=== PATIENT | male | born 1980 | race Hispanic/Latino ===

== ENCOUNTER 2017-09-30 10:43 | Emergency (ER) | payer OTHER ==
[~2017-09-30] VITALS: Ht 175.3 cm; Wt 74.8 kg
[2017-09-30] MEDS ORDERED: GABAPENTIN600 M1 PO (11:43)
[2017-09-30 11:49] LABS: ABSOLUTE BASOPHIL COUNT 0 /CUMM (0.0-0.2); ABSOLUTE EOSINOPHIL COUNT 0.1 /CUMM (0.0-0.7); ABSOLUTE GRANULOCYTE CT 4.6 /CUMM (1.4-6.5); ABSOLUTE MONOCYTE COUNT 0.5 /CUMM (0.10-0.60); BASOPHIL % 0.2 % (0.0-2.0); EOSINOPHIL % 1.1 % (0-5); GRANULOCYTE % 74.8 % (42.2-75.2); HEMATOCRIT 38.3 % (42-52); MEAN CORPUSCULAR HGB 29.7 PG (27.0-31.0); MEAN CORPUSCULAR VOLUME 87.2 FL (80.0-94.0); MEAN PLATELET VOLUME 7.9 FL (7.4-10.4); PLATELET COUNT 233 /CUMM (130-400); RBC DISTRIBUTION WIDTH 15.3 % (11.5-14.5); RED BLOOD CELL CT 4.39 /CUMM (4.70-6.10); WHITE BLOOD CELL COUNT 6.2 /CUMM (4.8-10.8)
--- NOTE | 2017-09-30 11:53 | ED PSYCHIATRIC COMPLAINT ---
History of Present Illness General Chief Complaint: Psychiatric Related Complaint Stated Complaint: REQUESTS TO BE SEEN BY CRISIS +HI Source: patient, family Exam Limitations: no limitations Vital Signs & Intake/Output Vital Signs & Intake/Output Vital Signs Date Time Temp Pulse Resp B/P B/P Pulse O2 O2 Flow FiO2 Mean Ox Delivery Rate 09/30 1713 97.4 82 20 140/81 96 Room Air 09/30 1341 97.9 66 18 122/74 97 Room Air 09/30 1053 98.4 93 20 111/76 97 Room Air Allergies Coded Allergies: No Known Allergies (09/30/17) Reconcile Medications Gabapentin 600 MG TABLET 1 TAB PO QPM MENTAL HEALTH (Reported) Triage Note: PT STATES HE HAS BEEN HAVING MENTAL ISSUES FOR SOME TIME AND WOULD LIKE TO GET IT UNDER CONTROL. STATES +HI/SI TODAY. STATES HE COULD BE A BAD DELANEY AT TIMES WHEN HE LOSES CONTROL. PT COMMITS TO SAFETY WHILE IN ED Triage Nurses Notes Reviewed? yes Onset: Gradual Duration: week(s): Associated Symptoms: anxiety, impaired concentration, injury, insomnia, suicidal ideation HPI: 37yoM w/ hx of bipolar here w/ complaints of SI/HI. Patient was dx at 14yo w/ bipolar disorder. He was well controlled on Depakote, but was lost to follow up at 16yo when he had a ' fall out ' w/ his behavioral health counsellor. Since then, he has self medicated with Cannabis and street Xanax. Getting and having children have been a positive facote in his life. He has had episodes of outbursts but has always explained it as his temper. His father passed at 28yo and since then has spiralled down with cyclic episodes of geovany (hyper vigilance, pressured speech, grandiosity, hypersexuality) and depression ('crashing', hopelessness, sleeping for days, SI/ HI). Through all this, he has also had trouble with the court, law enforcement, /family ending in being arrested and jailed. Currently, he is endorsing audible hallucination, SI/HI but no particular plans. He also denies any visual hallucination. He smokes cigs daily and endorses occasional use of EtOH and cannabis. He denies any heroid, cocaine or meth use. He is in the ER purposely to avert any manic episodes. He is asking for help. (Opare-Cecily STUDENT,Antonio) Past History Travel History Traveled to [place] past 21 day No Medical History Type of Reaction: Anxiety Any Pertinent Medical History? see below for history Neurological: NONE EENT: NONE Cardiovascular: NONE Respiratory: NONE Musculoskeletal: L shoulder fx Psychiatric: anxiety, bipolar disease, depression Surgical History Surgical History: non-contributory Psychosocial History What is your primary language [place]ese Tobacco Use: Current Daily Use Daily Tobacco Use Amount/Type: => 5 Cigarettes daily ETOH Use: occasional use Illicit Drug Use: marijuana (Antonio Bojorquez) Family History Hx Contributory? No (Ken Larkin MD) Review of Systems Review of Systems Constitutional: Reports: see HPI. Denies: no symptoms, chills, diaphoresis, fever, malaise, weakness, unexplained weight loss. EENTM: Reports: no symptoms. Respiratory: Reports: no symptoms. Cardiovascular: Reports: no symptoms. GI: Reports: no symptoms. Musculoskeletal: Reports: no symptoms. Neurological/Psychological: Reports: see HPI, anxiety, cognitive dysfunction, confusion, depressed, emotional problems. (Antonio Bojorquez) Review of Systems Genitourinary: Reports: no symptoms. Skin: Reports: no symptoms. Hematologic/Endocrine: Reports: no symptoms. Immunologic/Allergic: Reports: no symptoms. All Other Systems: Reviewed and Negative (Ken Larkin MD) Physical Exam Physical Exam General Appearance: well developed/nourished, no apparent distress, alert, awake Neurological/Psychiatric: no motor/sensory deficits, awake, alert, anxious, oriented x 3 SAD PERSONS SAD PERSONS Response Value Male Sex? yes 1 Depression/Hopelessness? yes 2 Previous Attempts/Psych Care yes 1 Excessive Ethanol/Drug Use? yes 1 Single//? yes 1 Organized/Serious Attempt yes 2 Total 8 SAD PERSONS Done? yes (Antonio Bojorquez) Physical Exam General Appearance: anxious, mild distress Head: atraumatic, normal appearance Eyes: Bilateral: normal appearance, PERRL, EOMI. Ears, Nose, Throat: normal pharynx, normal ENT inspection, hearing grossly normal Neck: normal inspection, supple, full range of motion, no midline tenderness Respiratory: normal breath sounds, chest non-tender, no respiratory distress, quiet respiration, lungs clear Cardiovascular: regular rate/rhythm, normal peripheral pulses, norml femoral pulses equa Gastrointestinal: normal bowel sounds, soft, non-tender, no organomegaly Extremities: normal range of motion, no ligament instability Appearance/Memory/Insight: disheveled, impaired insight Behavoir/Eye Contact/Speech: cooperative, compulsive, normal speech Thoughts/Hallucinations: no apparent hallucination Skin: intact, normal color, warm/dry (Chaya MCFARLAND,Ken) Progress Differential Diagnosis: drug intoxication, drug overdose, drug withdrawal, electrolyte abnormality, hypothyroidism, bipolar, schizoaffective disorder Plan of Care: Orders Procedure Date/time Status Continuous Observation Monitor 09/30 1845 Active Continuous Observation Monitor 09/30 1445 Active ED CRISIS PSYCH CONSULT 09/30 1248 Active TOTAL TRIODOTHYROXINE 09/30 1135 Complete FREE T4 09/30 1135 Complete URINE DRUG SCREEN FOR ER ONLY 09/30 1126 Complete TSH REFLEX 09/30 1126 Complete ETHANOL 09/30 1126 Complete DEPAKOTE LEVEL 09/30 112 Complete COMPREHENSIVE METABOLIC PANEL 09/30 112 Complete CBC WITHOUT DIFFERENTIAL 09/30 112 Complete Continuous Observation Monitor 09/30 1045 Active Laboratory Tests 09/30/17 1144: Urine Opiates Screen 814.00, Methadone Screen < 40, Barbiturate Screen < 60, Ur Phencyclidine Scrn < 6.00, Amphetamines Screen < 100, U Benzodiazepines Scrn < 85, Urine Cocaine Screen < 50, Urine Cannabis Screen > 80.00 H 09/30/17 1135: Anion Gap 10, Estimated GFR > 60, BUN/Creatinine Ratio 23.3, Glucose 94, Calcium 9.5, Total Bilirubin 0.5, AST 17, ALT 37, Alkaline Phosphatase 56, Total Protein 6.6, Albumin 3.9, Globulin 2.7, Albumin/Globulin Ratio 1.4, Free T4 1.17, Total T3 1.51, TSH &T3 &Free T4 Intrp 0.038 L, CBC w Diff NO MAN DIFF REQ, RBC 4.39 L, MCV 87.2, MCH 29.7, MCHC 34.0, RDW 15.3 H, MPV 7.9, Gran % 74.8, Lymphocytes % 16.5 L, Monocytes % 7.4, Eosinophils % 1.1, Basophils % 0.2, Absolute Granulocytes 4.6, Absolute Lymphocytes 1.0 L, Absolute Monocytes 0.5, Absolute Eosinophils 0.1, Absolute Basophils 0, Valproic Acid < 10.0 L, Serum Alcohol < 10.0 11:26AM Endorsing SI/HI. He is A&Ox4 and mildly tangential but responds well to redirection. SAD PERSONS Score of 8 dDx includes drug intoxication, toxic withdrawal, hypothyroidism, electrolyte problem, bipolar and schizoaffecitve disorder. Patient will be evaluated with the regular psych bundle including Utox, TSH, CBC, CMP and EtOH level. He will also get a Depakote level. If no acute medical issues, his care will be transferred to the Crisis team. 1:10 Patient was getting agitated and was evaluated by Dr. Larkin who ordered Ativan. Utox grossly for opiates. Patient awaiting to be seen by crisis team 3:30PM Care of patient to be completed taken over by Dr. Larkin. (Antonio Bojorquez) Departure Departure Condition: Stable Referrals: Patient Has No Primary Care Dr (PCP/Family) (Antonio Bojorquez) Departure Time of Disposition: 1653 Disposition: HOME OR SELF CARE Clinical Impression Primary Impression: Bipolar 1 disorder with moderate geovany Additional Instructions: Follow up with the recommendations of the psychiatric assistant. Departure Forms: General Discharge Information (Ken Larkin MD)
[2017-09-30 17:13] VITALS: BP 140/81
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
== END 2017-09-30 17:15 ==
LOC: ERH 10:43
PROVIDERS: Emergency Medicine
DX: F31.12 Bipolar disorder, current episode manic without psychotic features, moderate (principal)
CPT/HCPCS: 80307; G0463; G0480; J1200; J1630

== ENCOUNTER 2017-10-01 21:47 | Inpatient (IN) | payer OTHER ==
[~2017-10-01] VITALS: Ht 167.6 cm; Wt 68.1 kg
[~2017-10-01 21:47] MED LIST: GABAPENTIN600 M1 PO
[2017-10-01 22:29] LABS: ABSOLUTE BASOPHIL COUNT 0.1 /CUMM (0.0-0.2); ABSOLUTE EOSINOPHIL COUNT 0.1 /CUMM (0.0-0.7); ABSOLUTE GRANULOCYTE CT 6.4 /CUMM (1.4-6.5); ABSOLUTE LYMPH COUNT 2.1 /CUMM (1.2-3.4); BASOPHIL % 0.9 % (0.0-2.0); EOSINOPHIL % 1.2 % (0-5); GRANULOCYTE % 65.9 % (42.2-75.2); HEMATOCRIT 39.9 % (42-52); MEAN CORPUSCULAR HGB CONC 32.8 G/DL (33.0-37.0); MEAN CORPUSCULAR VOLUME 88.3 FL (80.0-94.0); MEAN PLATELET VOLUME 7.4 FL (7.4-10.4); PLATELET COUNT 293 /CUMM (130-400); RBC DISTRIBUTION WIDTH 15.5 % (11.5-14.5); RED BLOOD CELL CT 4.51 /CUMM (4.70-6.10)
[2017-10-01 22:33] LABS: WHITE BLOOD CELL COUNT 9.7 /CUMM (4.8-10.8)
--- NOTE | 2017-10-01 22:52 | ED PSYCHIATRIC COMPLAINT ---
See Addendum History of Present Illness General Chief Complaint: Psychiatric Related Complaint Stated Complaint: PER BROTHER LAW PT +SI Source: patient Exam Limitations: no limitations Vital Signs & Intake/Output Vital Signs & Intake/Output Vital Signs Date Time Temp Pulse Resp B/P B/P Pulse O2 O2 Flow FiO2 Mean Ox Delivery Rate 10/03 0753 97.5 77 126/77 10/02 2226 98.8 78 122/80 10/02 2220 98.8 78 122/80 10/02 2143 98.1 74 18 118/70 99 Room Air 10/02 1400 98.0 78 17 115/72 97 Room Air 10/02 1024 98.3 77 18 128/84 98 Room Air ED Intake and Output 10/03 0000 10/02 1200 Intake Total 250 Output Total Balance 250 Intake, Oral 250 Patient 150 lb Weight Allergies Coded Allergies: No Known Allergies (09/30/17) Triage Note: PT PRESENTS TO THE ER +SI, AND +HI. PT STATES HE WAS HERE YESTERDAY AND THAT HE WAS IN CONTROL MORE BUT TODAY HE FEELS OUT OF CONTROL.. PT STATES HE IS EXTREMELY ANXIOUS.. PT IS VERY JITTERY IN TRIAGE.. PT DENIES PLAN, PT STATES THAT HE IS EXTREMLY ANXIOUS AROUND PEOPLE AND GETS UNCONTROLLABLE RAGE AND WANTS TO HURT WHO EVER IS AROUND.. Triage Nurses Notes Reviewed? yes HPI: Patient presents for evaluation of worsening anxiety over the past few days secondary to increasing family stress and "a lot of things". Patient states that he has had intermittent thoughts of suicide without plan. He denies any prior attempts at suicide. He denies homicidal ideation. He states he drinks alcohol rarely but does smoke marijuana fairly frequently and uses Xanax off the street. Patient's anxiety is severe and more or less constant but fluctuates in intensity. Nothing seems to make him feel better. (Christal MCFARLAND,Dwayne Chao) Reconcile Medications Gabapentin 600 MG TABLET 1 TAB PO QPM MENTAL HEALTH (Reported) Oxycodone HCl (Unknown Strength) TABLET (Unknown Dose) PO PAIN CONTROL ( Reported) (Rio MCFARLAND,Olivia) Past History Travel History Traveled to [place] past 21 day No Medical History Any Pertinent Medical History? see below for history Neurological: NONE EENT: NONE Cardiovascular: NONE Respiratory: NONE Musculoskeletal: L shoulder fx Psychiatric: anxiety, bipolar disease, depression Surgical History Surgical History: non-contributory Psychosocial History Who do you live with Mother What is your primary language [place] Tobacco Use: Current Daily Use Daily Tobacco Use Amount/Type: => 5 Cigarettes daily Family History Hx Contributory? No (Christal MCFARLAND,Dwayne Chao) Review of Systems Review of Systems Constitutional: Reports: no symptoms. EENTM: Reports: no symptoms. Respiratory: Reports: no symptoms. Cardiovascular: Reports: no symptoms. GI: Reports: no symptoms. Genitourinary: Reports: no symptoms. Musculoskeletal: Reports: no symptoms. Skin: Reports: no symptoms. Neurological/Psychological: Reports: see HPI. Hematologic/Endocrine: Reports: no symptoms. Immunologic/Allergic: Reports: no symptoms. All Other Systems: Reviewed and Negative (Christal MCFARLAND,Dwayne Chao) Physical Exam Physical Exam General Appearance: see below Neurological/Psychiatric: see below Comments: General: Alert, calm, cooperative Head: Normocephalic, atraumatic Eyes: Normal inspection, no nystagmus, EOMI Ears: Normal inspection Nose: Normal inspection Throat: Moist mucosa Neck: Supple, no goiter Heart: Regular rate and rhythm, no murmurs rubs or gallops Lungs: Clear to auscultation bilaterally with good air entry Abdomen: Soft nontender nondistended, normal bowel sounds Chest: Nontender Extremities: Normal range of motion grossly, mild tremors present, no cyanosis clubbing or edema of the upper extremities Neurologic: cranial nerves II through XII grossly intact, speech clear, gait normal Psychiatric: No apparent delusions or hallucinations, no pressured speech or thought blocking, subdued demeanor Skin: Vitiligo of the hands SAD PERSONS Done? deferred to crisis (Christal MCFARLAND,Dwayne Chao) Progress Differential Diagnosis: depression, anxiety, stress, personality disorder Plan of Care: Orders Procedure Date/time Status Regular Diet 10/03 B Active Continuous Observation Monitor 10/03 0700 Active THYROID STIMULATING HORMONE 10/03 0600 Complete LIPID PANEL 10/03 0600 Complete GLYCOSYLATED HGB 10/03 0600 Complete Continuous Observation Monitor 10/03 0300 Active Continuous Observation Monitor 10/02 2300 Complete Vital Signs 10/02 2228 Active Inpt Psych Teach/Educate 10/02 2228 Active Nutritional Intake, Monitor 10/02 2228 Active Inpt Psych Auricular Acupunctu 10/02 2228 Active Vital Signs 10/02 2216 Complete Inpt Psych Teach/Educate 10/02 2216 Complete Nutritional Intake, Monitor 10/02 2216 Complete Inpt Psych Auricular Acupunctu 10/02 2216 Complete Patient Data - inpatient psych 10/02 2143 Active Admit to inpatient psych 10/02 2143 Active Admit to inpatient psych 10/02 2142 Active Continuous Observation Monitor 10/02 1900 Complete Intake & Output 10/02 0549 Complete Change service to 10/02 UNK Active Vital Signs 10/02 UNK Complete Nursing Misc 10/02 UNK Active Alternative Nursing Therapy 10/02 UNK Complete Activity/Ambulation 10/02 UNK Complete Current Medications Sig/Luis E Start time Last Medication Dose Stop Time Status Admin Sertraline HCl 50 MG 0800 10/04 0800 AC (Zoloft) Gabapentin 600 MG TIDAC 10/03 1200 AC (Neurontin) Divalproex Sodium 250 MG 0800,1600,2200 10/03 0845 AC 10/03 (Depakote) 0942 Multivitamins 1 TAB 0800 10/03 0800 AC 10/03 (Theragran Vitamins) 0942 Benztropine Mesylate 1 MG Q6P PRN 10/020 AC 10/02 (Cogentin 1 MG 2217 Tablet) Benztropine Mesylate 1 MG Q6P PRN 10/02 2199 AC (Cogentin) Haloperidol 5 MG Q6P PRN 10/02 2199 AC 10/02 (Haldol) 221 Haloperidol 5 MG Q6P PRN 10/02 2199 AC (Haldol) Lorazepam 2 MG Q6P PRN 10/02 2199 AC (Ativan) Nicotine 2 MG Q2P PRN 10/02 2199 AC 10/03 (Nicotine) 0713 Trazodone HCl 50 MG AT BEDTIME NEED.. 10/02 2199 AC 10/02 (Desyrel) 2304 Acetaminophen 650 MG Q6P PRN 10/02 2144 AC (Tylenol) Al Hydroxide/Mg 30 ML Q4-6 PRN PRN 10/02 2144 AC Hydroxide (Maalox Plus) Gabapentin 300 MG Q6P PRN 10/02 2144 AC 10/03 (Neurontin) 0711 Magnesium Hydroxide 30 ML AT BEDTIME PRN 10/02 2144 AC (Milk Of Magnesia) Laboratory Tests 10/03/17 0636: Hemoglobin A1c 5.8, Triglycerides 84, Cholesterol 161, LDL Cholesterol, Calc 87, HDL Cholesterol 58, Cholesterol/HDL Ratio 3, TSH 0.877 10/02 7:08 AM PATIENT SIGNED OUT TO ME BY DR ASH, PENDING CRISIS EVALUATION. (Olivia Pate MD) (Dwayne Siegel MD) Hand-Off Endorsed To: Olivia Pate MD Endorsed Time: 0700 Pending: consult (Manjula MCFARLAND,Ulises Diego) Hand-Off Endorsed To: Dwayne Siegel MD Endorsed Time: 1458 Pending: consult (CRISIS BED SEARCH) (Olivia Pate MD) Departure Departure Disposition: STILL A PATIENT Condition: Stable Referrals: Patient Has No Primary Care Dr (PCP/Family) Departure Forms: Customer Survey General Discharge Information (Dwayne Siegel MD) Departure Clinical Impression Primary Impression: Suicide ideation Secondary Impressions: Anxiety, Depressed (Olivia Pate MD) Psych Admission Note Psychiatric Admission: I have seen and evaluated JOSE BIRMINGHAM JR. I have also reviewed all the pertinent lab results and diagnostic results. JOSE BIRMINGHAM JR will be admitted to our inpatient Psychiatric unit for treatment and care. (Chaya MCFARLAND,Ken)
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
[2017-10-02 22:20] VITALS: BP 122/80
[2017-10-02 22:26] VITALS: BP 122/80
[2017-10-02] MEDS ORDERED: OXYCODONE HCL30 M1 PO (23:29)
[2017-10-03 07:53] VITALS: BP 126/77
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
[2017-10-03 12:02] VITALS: BP 129/67
[2017-10-03 12:38] VITALS: BP 129/67
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
[2017-10-03 15:57] VITALS: BP 131/70
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
--- NOTE | 2017-10-03 18:34 | RADIOLOGY REPORT ---
EXAMINATION: SHOULDER 3 VIEWS, LEFT CLINICAL INFORMATION: Left shoulder pain. Sprain. COMPARISON: None. TECHNIQUE: AP views of the left shoulder were obtained in internal and external rotation. In addition, a Y view was obtained. FINDINGS: There are no fractures or dislocations. There is mild elevation to the lateral left clavicle in relation to the acromion. There is no significant overlying soft tissue swelling. The humeral head is seated within a well-formed glenoid. The AC joint is intact. IMPRESSION: No acute fracture identified. Mild elevation to the lateral left clavicle in relation to the acromion. Correlate with physical exam is a grade 2 left AC joint injury cannot be excluded.
[2017-10-03 19:45] VITALS: BP 130/53
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
[2017-10-04 08:09] VITALS: BP 110/95
--- NOTE | 2017-10-04 11:44 | IP INCIDENTAL NOTE PSYCH ---
Incidental Note Notation: Heavenly Page RN gave me a copy of the radiologist's interpretation of the Left Shoulder X-rays. Since there is no fracture or dislocation, will treat conservatively with Diclofenac Sodium and re-evaluate/correlate clinically in 3 days' time to see if Ortho involvement is warranted for the suspicion of AC joint injury
[2017-10-04 12:08] VITALS: BP 123/60
[2017-10-04 16:20] VITALS: BP 115/78
--- NOTE | 2017-10-04 16:33 | SOCIAL WORKER PROG NOTE PSYCH ---
Social Work Progress Note Progress Note 3:50pm This copywriter met with patient. Patient described his mood as "I've been better. " He stated that he was struggling to manage his anxiety and finds himself in a cycle between isolating to avoid being around other patients in order to manage anxiety or avoiding isolating as being in his room increases his anxiety. Patient stated that he did not feel that his medications were helping or that his psychiatrist was listening to his concerns. Patient stated that he will discuss his medication concerns further with the adult remedial education instructor psychiatrist this weekend. Patient reported that he has been struggling with MNA and DFA. He denied HI/VH. He reported occassional AH when he feels agitated/aggressive prior to admission (he denied any access to weapons). Despite multiple inquiries about what he hears, patient was unable or unwilling to give examples. This copywriter and patient discussed strategies that he could utilize to manage his anxiety this weekend. He identified writing as something he enjoys and also stated that he was given some coloring pages that he could work on. Patient stated that his visited last night and informed him that she spoke with this copywriter. He stated that she was still unsure about her schedule and when she would be able to attend/schedule a family meeting.
[2017-10-04 19:43] VITALS: BP 100/73
[2017-10-05 07:40] VITALS: BP 123/81
--- NOTE | 2017-10-05 10:23 | CP SOUTH PROGRESS NOTE PSYCH ---
Psych (Inpt) Progress Note Progress Note Include the following elements, when applicable: Involvement in the active treatment of the patient with behavioral observations of the patient and the patient's response to the treatment. Review of the ongoing treatment process in the context of the treatment plan. Indication of how multi-disciplinary staff members are carrying out the treatment plan. Plans for future interventions and recommendations for revision of the treatment plan. Liaison with other physicians/providers. Progress Note: Pt notes that he is "not at all good." He notes marked anger, irritable, and stated, "I don't know what will happen, I might just explode." Engaged patient around developing some sort of coping skills and was very explicit that violence on the unit would not be tolerated. He later apologized. Pt Denies SI or HI. Current Medications Sig/Luis E Start time Last Medication Dose Route Stop Time Status Admin Acetaminophen 650 MG Q6P PRN 10/02 2145 AC 10/04 PO 1001 Al Hydroxide/Mg 30 ML Q4-6 PRN PRN 10/02 2145 AC Hydroxide PO Benztropine Mesylate 1 MG .STK-MED ONE 10/04 1624 DC PO 10/04 1625 Benztropine Mesylate 1 MG Q6P PRN 10/02 2200 AC 10/04 PO 1625 Benztropine Mesylate 1 MG Q6P PRN 10/02 2200 AC IM Chlorpromazine 50 MG Q6-PRN PRN 10/04 0830 AC 10/05 PO 0959 Clonazepam 1 MG 10/04 AC 10/04 PO 10/11 1959 2125 Diclofenac Sodium 75 MG Q8P PRN 10/04 1145 AC 10/04 PO 2126 Divalproex Sodium 500 MG 0800,10/04 AC 10/05 PO 0809 Gabapentin 600 MG 0800,1400 10/05 1400 AC PO Gabapentin 600 MG BID 10/05 1000 DC PO Gabapentin 600 MG ONCE ONE 10/05 1000 DC 10/05 PO 10/05 1001 0959 Gabapentin 1,800 MG 10/04 2200 AC 10/04 PO 2126 Haloperidol 5 MG .STK-MED ONE 10/04 1625 DC PO 10/04 1626 Haloperidol 5 MG Q6P PRN 10/02 2200 AC 10/04 PO 1625 Haloperidol 5 MG Q6P PRN 10/02 2200 AC IM Hydroxyzine HCl 50 MG Q6P PRN 10/05 1000 AC 10/05 PO 1005 Lorazepam 2 MG Q6P PRN 10/020 AC IM Magnesium Hydroxide 30 ML AT BEDTIME PRN 10/02 2145 AC PO Multivitamins 1 TAB 10/03 0800 AC 10/05 PO 0809 Nicotine 21 MG 10/05 0800 AC 10/05 TOP 0809 Nicotine 2 MG Q2P PRN 10/02 2200 AC 10/03 PO 0713 Sertraline HCl 50 MG 10/04 0800 AC 10/05 PO 0809 Laboratory Tests 10/03 0636 Chemistry Hemoglobin A1c (4.2 - 5.8 %) 5.8 Triglycerides (<150 mg/dL) 84 Cholesterol (< 200 MG/DL) 161 LDL Cholesterol, Calc (65 - 129 mg/dL) 87 HDL Cholesterol (40 - 60 mg/dL) 58 Cholesterol/HDL Ratio (0.00 - 4.88 %) 3 TSH (0.270 - 4.200 uIU/mL) 0.877 Vital Signs Date Time Temp Pulse Resp B/P B/P Pulse O2 O2 Flow FiO2 Mean Ox Delivery Rate 10/05 0740 97.4 69 123/81 10/04 1943 98.1 68 100/73 10/04 1620 72 115/78 10/04 1208 66 123/60 MSE General appearance: good hygiene and grooming; Attitude: cooperative but very defensive and hostile; Eye contact: appropriate; Movement: no psychomotor agitation or slowing; Speech: nl fluency, nl rate/rhythm, nl volume, nl prosody; Mood: "not good" Affect: extremely irritable flat, appropriate, constricted, non-labile, congruent; Thought process: linear and goal-directed; Thought content: denied SI or HI, no paranoid ideation; Perception: denied hallucinations- auditory, visual, does not appear to be responding to internal stimuli; I/J: limited A/P: Pt with Bipolar disorder and SI with marked irritability that is likely more behavioral in origin than steming from primary mood disorder. Encouraged patient to develop at least one coping skill around his anger. - VPA level at AM - Added gabapentin 600mg BID at 8am and 2pm - Added hydroxyzine PRN -Continue current medication regimen -Encourage integration into the milieu
[2017-10-05 12:08] VITALS: BP 122/67
[2017-10-05 15:56] VITALS: BP 114/71
[2017-10-05 19:47] VITALS: BP 112/68
[2017-10-06 07:48] VITALS: BP 131/74
--- NOTE | 2017-10-06 10:51 | CP SOUTH PROGRESS NOTE PSYCH ---
Psych (Inpt) Progress Note Progress Note Include the following elements, when applicable: Involvement in the active treatment of the patient with behavioral observations of the patient and the patient's response to the treatment. Review of the ongoing treatment process in the context of the treatment plan. Indication of how multi-disciplinary staff members are carrying out the treatment plan. Plans for future interventions and recommendations for revision of the treatment plan. Liaison with other physicians/providers. Progress Note: Pt upset with medicine changes yesterday despite having agreed to them and reviewed them with this provider several times. Did get upset but not aggressive. Denies SI or HI. Current Medications Sig/Luis E Start time Last Medication Dose Route Stop Time Status Admin Acetaminophen 650 MG .STK-MED ONE 10/05 174 DC PO 10/05 174 Acetaminophen 650 MG Q6P PRN 10/02 2145 AC 10/05 PO 1742 Al Hydroxide/Mg 30 ML Q4-6 PRN PRN 10/02 2145 AC Hydroxide PO Benztropine Mesylate 1 MG Q6P PRN 10/02 2200 AC 10/04 PO 1625 Benztropine Mesylate 1 MG Q6P PRN 10/02 2200 AC IM Chlorpromazine 50 MG Q6-PRN PRN 10/04 0830 AC 10/06 PO 0756 Clonazepam 1 MG 10/04 AC 10/05 PO 10/11 1959 2050 Diclofenac Sodium 75 MG Q8P PRN 10/04 1145 AC 10/04 PO 2126 Divalproex Sodium 500 MG 0800,10/04 AC 10/05 PO 2049 Gabapentin 600 MG TID 10/06 1600 UNVr PO Gabapentin 600 MG 0800,1400 10/05 1400 DC 10/06 PO 0756 Gabapentin 1,800 MG 10/04 220 DC 10/05 PO 2132 Haloperidol 5 MG Q6P PRN 10/02 2200 AC 10/04 PO 1625 Haloperidol 5 MG Q6P PRN 10/02 2200 AC IM Hydroxyzine HCl 50 MG Q6P PRN 10/05 1000 AC 10/05 PO 1741 Lorazepam 2 MG Q6P PRN 10/02 2200 AC IM Magnesium Hydroxide 30 ML AT BEDTIME PRN 10/02 2145 AC PO Multivitamins 1 TAB 10/03 0800 AC 10/06 PO 0756 Nicotine 21 MG 10/05 0800 AC 10/06 TOP 0756 Nicotine 2 MG Q2P PRN 10/02 2199 AC 10/03 PO 0713 Sertraline HCl 50 MG 10/04 0800 AC 10/06 PO 0756 Trazodone HCl 50 MG AT BEDTIME 10/06 2200 UNVr PO Laboratory Tests 10/06 06 Chemistry Total Bilirubin (0.2 - 1.3 mg/dL) 0.4 Direct Bilirubin (< 0.4 mg/dL) 0.4 AST (17 - 59 U/L) 14 L ALT (21 - 72 U/L) 28 Alkaline Phosphatase (< 127 U/L) 59 Total Protein (6.3 - 8.2 g/dL) 6.9 Albumin (3.5 - 5.0 g/dL) 4.1 Toxicology Valproic Acid (50 - 120 ug/mL) 62.3 Vital Signs Date Time Temp Pulse Resp B/P B/P Pulse O2 O2 Flow FiO2 Mean Ox Delivery Rate 10/06 0748 97.1 98 131/74 10/05 1947 98.7 97 112/68 10/05 1556 98 114/71 10/05 1208 91 122/67 MSE General appearance: good hygiene and grooming; Attitude: cooperative but very defensive and hostile; Eye contact: appropriate; Movement: no psychomotor agitation or slowing; Speech: nl fluency, nl rate/rhythm, nl volume, nl prosody; Mood: "terrible" Affect: extremely irritable flat, appropriate, constricted, non-labile, congruent; Thought process: linear and goal-directed; Thought content: denied SI or HI, no paranoid ideation; Perception: denied hallucinations- auditory, visual, does not appear to be responding to internal stimuli; I/J: limited A/P: Pt with Bipolar disorder and SI with marked irritability that is likely more behavioral in origin than steming from primary mood disorder which continues today. - VPA level at AM of 62, increased to 500mg and 750mg at qhs - Change gabapentin to 600mg BID - Added hydroxyzine PRN and trazodone standing for sleep -Continue current medication regimen -Encourage integration into the milieu
[2017-10-06 11:56] VITALS: BP 128/82
[2017-10-06 15:37] VITALS: BP 120/83
[2017-10-06 19:27] VITALS: BP 111/76
[2017-10-07 07:38] VITALS: BP 101/76
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
[2017-10-07 12:24] VITALS: BP 123/71
[2017-10-07 16:13] VITALS: BP 117/70
--- NOTE | 2017-10-07 17:28 | SOCIAL WORKER PROG NOTE PSYCH ---
Social Work Progress Note Progress Note 2:26pm This ghost writer met with patient. Patient stated that he has court scheduled for tomorrow. This ghost writer and patient called his public relations studies director (Arnoldo Marlene), [phone], and left a vm informing him that the patient is currenlty in the hospital. A call back number for this ghost writer was provided. Patient expressed interest in attending IOP following discharge and was unsure if he would like to attend IOP or an IOP in [place] (i.e. [facility] or [place]). Patient stated that he would consider this and report back to this this ghost writer. Patient also expressed interest in pursuing a job offer that he has and would need to have IOP scheduled for the evening. Patient denied SI/HI/ AH/VH.
[2017-10-07 19:53] VITALS: BP 125/70
[2017-10-08 07:35] VITALS: BP 116/71
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
[2017-10-08 12:38] VITALS: BP 136/74
[2017-10-08 16:07] VITALS: BP 115/69
--- NOTE | 2017-10-08 17:38 | SOCIAL WORKER PROG NOTE PSYCH ---
Social Work Progress Note Progress Note This literary writer met with patient. He was ambivalent about where he would like to go for outpatient (IOP) treatment and was unsure about whether he would be willing to discontinue the Klonopin so that he may attend the Dual IOP. Patient denied SI/HI/AH/VH and denied any thoughts of violence. He reported his anxiety at a 5/10 with 10 being the most anxiety and identified the Thorazine as helpful. Patient later approached this literary writer and stated that he wanted to remain on the Klonopin and seek treatment elsewhere. This literary writer contacted [facility] and learned that they have a prescriber and patients interested in Dual IOP may utilize walk in intake hours on Sat, and Sat at 7:45am. Patient spoke with [facility], who stated that their walk in hours for Dual IOP are Mon-Fri from 12- 3pm. [facility] does not have a prescriber at this time.
[2017-10-08 19:41] VITALS: BP 144/75
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
[2017-10-09 07:55] VITALS: BP 106/60
[2017-10-09] MEDS ORDERED: KLONOPIN0.5 M1 PO (08:08)
[2017-10-09] MEDS ORDERED: DICLOFENAC SODI75 M2 PO (08:08)
[2017-10-09] MEDS ORDERED: ZOLOFT100 M1 PO (08:08)
[2017-10-09] MEDS ORDERED: DEPAKOTE125 M1 PO (08:08)
[2017-10-09] MEDS ORDERED: NICOTINE PATCH1 EAC3 TOP (08:08)
[2017-10-09] MEDS ORDERED: DEPAKOTE500 M1 PO (08:08)
[2017-10-09] MEDS ORDERED: TRAZODONE HCL100 M1 PO (08:13)
[2017-10-09] MEDS ORDERED: CHLORPROMAZINE25 M2 PO (08:13)
--- NOTE | 2017-10-09 08:15 | Patient Discharge Instructions ---
Psych Discharge Inst General Discharge Information Reason for Admission: "I'm not doing good at all". Psy Discharge Primary Diag+ F32.9 Unspecified Depress nicolas Disorder Unspecified Anxiety Disor Psy Discharge Secondary Diag+ alcohol use disorder coaine use disorder Summary Tests/Major Procedures Lab Valproic Acid 62.3 ug/mL 10/06/17 0605 ALT 28 U/L 10/06/17 0605 AST 14 U/L L 10/06/17 0605 Alkaline Phosphatase 59 U/L 10/06/17 0605 Hct 39.9 % L 10/01/17 2220 Hgb 13.1 G/DL L 10/01/17 2220 Urine Cannabis Screen 73.00 NG/ML H 10/02/17 0651 Urine Cocaine Screen > 1000 NG/ML H 10/02/17 0651 Valproic Acid 62.3 ug/mL 10/06/17 0605 Studies Pending at DC: None Patient Instructions Contact Information Your Psychiatrist on [facility] was Chas Zafar MD * If you are experiencing an emergency related to this hospitalization, please call [phone] to contact the treating psychiatrist or the psychiatrist-on- call. * To Request a copy of your medical records, please contact the Medical Records Department at [phone]. * To request results of studies pending at the time of discharge, please call [phone]. * Continue your Medications until directed to stop by your Healthcare provider. General Medication Information Please continue to take your new medications and your continued home medications , unless otherwise indicated on your discharge medication list, or unless directed by your MD or CUSTOMER RESPONSE REPRESENTATIVE to stop them. Special Instructions Diet Regular Activity Normal - Tobacco Use Treatment Offered Post DC Medications Offered: Script Given-See Med List Post DC Tobacco Treatment Plan: Other Tobacco Tx Pgm - EtOH/Drug Use D/O Treatment Offered Post DC Medications Offered: Script Given-See Med List Post DC EtOH/SubAbuse TX Plan: Other SubAbuse/Dual Pgm Metabolic Screening Not Applicable, patient not on a neuroleptic. Advance Directives Does the Patient have Medical Advance Directives No/Refused further info Does Pt have Psychiatric Advance Directives? No/Refused further info Does Patient have a Designated Surrogate Decision Maker: No Information About Psychiatric Advance Directives Provided? Refused Discharge Plan Post Hospital Treatment Plan: [facility]
--- NOTE | 2017-10-09 08:43 | DISCHARGE SUMMARY REPORT-PSYCH ---
Visit Information Visit Dates/Diagnosis' Admission Date: 10/02/17 Discharge Date: 10/09/17 Reason for Admission: "I'm not doing good at all". Psy Discharge Primary Diag: F32.9 Unspecified Depress nicolas Disorder Unspecified Anxiety Disor Psy Discharge Secondary Diag: alcohol use disorder coaine use disorder Hospital Course Significant Lab Findings: Lab Valproic Acid 62.3 ug/mL 10/06/17 0605 ALT 28 U/L 10/06/17 0605 AST 14 U/L L 10/06/17 0605 Alkaline Phosphatase 59 U/L 10/06/17 0605 Hct 39.9 % L 10/01/17 2220 Hgb 13.1 G/DL L 10/01/17 2220 Urine Cannabis Screen 73.00 NG/ML H 10/02/17 0651 Urine Cocaine Screen > 1000 NG/ML H 10/02/17 0651 Valproic Acid 62.3 ug/mL 10/06/17 0605 Course Complications: The patient did not have any complications while he was on the inpatient psychiatric unit Consultations: The patient had a history and physical examination when he was on the inpatient psychiatric unit Assessment by Dr Mary Aquino M.D.: 37-year-old male with past history significant for depression, bipolar disorder, substance use admitted to Inpatient Psychiatry with aggravated and agitated behavior and auditory hallucinations as well as SI. Patient is also combining of left shoulder pain and claims that he had sustained an injury about 3 weeks ago. I will check left shoulder x-ray. I have reviewed his blood work. Problem List: 1. Suicide ideation 2. Depressed 3. Bipolar 1 disorder with moderate geovany 4. Anxiety 5. Left shoulder pain Allergies: Coded Allergies: No Known Allergies (09/30/17) Hospital Course/[place] Response: 10/02/2017: The patient presented to the emergency department and was seen by the crisis clinicians in the emergency department, the patient was admitted to the inpatient psychiatric unit 10/03/2017: I saw the patient for the initial psychiatric evaluation. My diagnostic impression was F32.9 Unspecified Depressive Disorder + F41.9 Unspecified Anxiety Disorder + F29 Unspecified Schizophrenia Spectrum and other Psychotic Disorder F12.20 Cannabis Use Disorder, moderate; F10.20 Alcohol Use Disorder, moderate F13.20 Sedative, Hypnotic or Anxiolitic Related Disorders, moderate; F14.20 Stimulant Use Disorder, Cocaine, moderate I discussed the pharmacological options with Herminio and he agreed to the following plan: Start Depakote 250 mg 3 times a day Start gabapentin 600 mg 3 times a day Start sertraline 50 mg once daily 10/04/2017: Increase Depakote to 500 mg BID; Change gabapentin to 1800 mg at bedtime Continue sertraline 50 mg once daily; Add Klonopin 1 mg at 8Pm (pt. said he was using unprescribed Xanax daily for several weeks 2mg at bedtime) D/C PRN Atarax and Gabapentin Start PRN Thorazine 50 mg up to Q6 hours 10/05/2017: Patient was seen by Dr. Candi MD who was covering for this weekend She added gabapentin 600mg BID at 8am and 2pm She added hydroxyzine PRN 10/06/2017: Patient was seen by Dr. Candi MD, covering psychiatrist VPA level at AM of 62, increased to 500mg and 750mg at qhs - Change gabapentin to 600mg BID 10/07/2017: I evaluated the patient and he was complaining of depression and was tearful during the interview, he also continued to complain about anxiety Increase sertraline to 100 mg once daily Increase PRN Thorazine to 75 mg Q6 hours 10/08/2017: There were no changes in the patient's medication. The patient seems to be clinically ready for discharge from the inpatient psychiatric unit. However he was very undecided in terms of finalizing his treatment plan for aftercare. set up worker met with him at length in the afternoon, the decision was made to hold him overnight in order to finalize the aftercare plan since initially he said he wants to do [facility]'s intensive outpatient program but then reported that he is going to be living in [place] for a couple of weeks while he is doing a job, that he decided to do different intensive outpatient program because he remains on half a milligram of Klonopin at bedtime. 10/09/2017: The patient's condition on the day of his discharge: Vital Signs Temp. 96.0; Pulse: 98/min.; BP: 106/60 mmHg Mental Status Examination: Herminio reported that he is excited about leaving. He believes that he is ready for discharge. He reported that he is feeling optimistic and denied feeling depressed. He denies feeling hopeless, denies feeling worthless, denied wishing , and denied thinking of suicide. He reported that his anxiety has been manageable. He was alert, and oriented to time, place, and person. He was calm and cooperative, He did not exhibit any abnormal movements, no psychomotor agitation or slowing; his speech was normal, not slurred and not pressured. Herminio was coherent/no thought disorder, there were no delusions, Denied feeling paranoid; denied hallucinations, and he did not appear to be responding to internal stimuli Summary & Progress: Herminio Kimbrough is a 37-year-old who was admitted to the inpatient psychiatric unit on 10/02/2017 Herminio's psychiatric history dates back to age 15. Chronic problems with anger (multiple fights and arrests and one incarceration, history of assaulting a psychiatrist). Herminio was diagnosed with bipolar disorder, alcohol use disorder, cannabis use disorder, sedative hypnotic use disorder, and stimulant use disorder (cocaine) Since his admission, Herminio has shown improvement in his mood and anxiety and agitation level, he has not been voicing thoughts of suicide and has not been voicing any thoughts of violence or homicide pretty much since his admission to the unit Discharge diagnoses (updated 10/04/2017): F32.9 Unspecified Depressive Disorder F41.9 Unspecified Anxiety Disorder F12.20 Cannabis Use Disorder, moderate F10.20 Alcohol Use Disorder, moderate 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 His medications were sent electronically to [facility] on [address] Discharge HBIPS - Tobacco Use Treatment Offered Post DC Medications Offered: Script Given-See Med List Post DC Tobacco Treatment Plan: Other Tobacco Tx Pgm - EtOH/Drug Use D/O Treatment Offered Post DC Medications Offered: Script Given-See Med List Post DC EtOH/SubAbuse TX Plan: Other SubAbuse/Dual Pgm Metabolic Screening - Screen if on a Neuroleptic Medication - Metabolic screening should include: - Blood Pressure, BMI, Glucose or Hgb A1c, & a - Lipid profile from within the past 365 days. Metabolic Screening Not Applicable, patient not on a neuroleptic. Discharge Instructions General Discharge Information Multiple Neuroleptics: Not Applicable Discharge Diet Regular Discharge Activity Normal DC Disposition: Home with follow-up at [facility]'s intensive outpatient program Prescriptions Stop taking the following medications: Oxycodone HCl (Oxycodone HCl) (Unknown Strength) TABLET ORAL Qty = 265 Continue taking these medications: Gabapentin (Gabapentin) 600 MG TABLET 1 Tablet ORAL Every night Qty = 120 Start taking the following new medications: Nicotine (Nicotine Patch) 21 MG/24 HOUR PATCH.TD24 21 Milligram On the skin DAILY @8 AM Qty = 14 No Refills Diclofenac Sodium (Diclofenac Sodium) 75 MG TABLET.DR 75 Milligram ORAL EVERY 8 HOURS NEEDED as needed for Left Shoulder Pain, any severity Qty = 45 No Refills Clonazepam (Klonopin) 0.5 MG TABLET 0.5 Milligram ORAL 2000 Qty = 7 No Refills Instructions: 7 nights then STOP Sertraline HCl (Zoloft) 100 MG TABLET 100 Milligram ORAL DAILY @8 AM Qty = 15 No Refills Divalproex Sodium (Depakote) 500 MG TABLET.DR 1 Tablet ORAL TWICE DAILY Qty = 30 No Refills Divalproex Sodium (Depakote) 125 MG TABLET.DR 2 Tablet ORAL BEDTIME Qty = 30 No Refills Trazodone HCl (Trazodone HCl) 100 MG TABLET 1 Tablet ORAL AT BEDTIME as needed for insomnia Qty = 15 No Refills Chlorpromazine HCl (Chlorpromazine HCl) 25 MG TABLET 02-03 Tablet ORAL EVERY 8 HOURS NEEDED as needed for anxiety or agitation Qty = 90 No Refills Studies Pending at Discharge None Copies To: [facility] IOP
--- NOTE | 2017-10-09 14:24 | SOCIAL WORKER PROG NOTE PSYCH ---
Social Work Progress Note Progress Note This marketing copywriter met with patient. He reported some anxiety and identified coping skills that he has been utilizing to manage the anxiety: "writing and doing push ups." Patient denied SI/HI/AH/VH and denied any violent thoughts. He stated that he would like to go to [facility] for IOP and agreed to utilize their walk in hours on Saturday (10/14/17) at 7:45am for the intake. Per this marketing copywriter's discussion with [facility], patient was also informed that he would meet with a medication prescriber on the day of his intake. Patient identified a safety plan: "make phone calls [to friends], call my , call the program [[facility] and go to the hospital." Patient was also informed that he would be provided with warm lines and crisis numbers upon discharge, which he was agreeable to utilizing. Patient also identified 911 and 211 as additional resources. This marketing copywriter and patient contacted his , Karly, by phone. She reported that she has observed that the patient's thinking has become clearer since he was admitted to the hospital. She stated that prior to discharge she was concerned about his substance use, stress as well as the patient living in a "not good environment" with his mother. Patient and his both stated that the patient would be living at home with her and his children upon discharge. They both denied any restrictions to doing so, legal or otherwise. Discharge plans and safety plan were reviewed with his (as described above). She was agreeable to these plans and did not identify concerns about him discharging today. This marketing copywriter contacted a ride through [employer] which was later cancelled (spoke with Tierney) ref # [id number] due the patient identifying his own transportation home through a friend. Patient was informed that his music therapist public school system, Actuarial Manager Arnoldo Rosario, left a vm for this marketing copywriter stating that he received the message about the patient being in the hospital on the day of his court date. Lionel Rosario requested a letter indicating dates of admission. Letter was written and after presenting it to the patient, it was faxed to Lionel Rosario at [phone] at 1307 today. A vm was also left for Lionel Rosario informing him that the letter had been faxed. Faxed Referral(s) Referred To: [facility] Transition of Care Documents sent: Health Summary Faxed to: [facility] Faxed by: Mary Alice Siddiqui CORK FLOOR INSTALLER Date faxed: 10/09/17
== END 2017-10-09 11:10 | DRG 754 ==
LOC: ERH 21:47 → ERHI 10-02 21:43 → CP SOUTH 10-02 21:43 → ENTRNSPT 10-02 21:46 → EDTRNSPT 10-02 21:55 → EDTRNSPTSTS 10-02 21:55 → CMPTRNSPT 10-02 22:07 → CP SOUTH 10-02 22:13
PROVIDERS: Emergency Medicine; Psychiatry & Neurology Psychiatry
DX: F32.9 Major depressive disorder, single episode, unspecified (principal); F41.9 Anxiety disorder, unspecified; Z72.89 Other problems related to lifestyle; F14.90 Cocaine use, unspecified, uncomplicated
CPT/HCPCS: 36415; 73030-LT; 80307; G0463; G0480; J3230

== ENCOUNTER 2018-03-12 11:40 | Inpatient (IN) | payer OTHER ==
[~2018-03-12] VITALS: Ht 175.3 cm; Wt 61.9 kg
[~2018-03-12 11:40] MED LIST changes: +CHLORPROMAZINE25 M2 PO; +DEPAKOTE125 M1 PO; +DEPAKOTE500 M1 PO; +DICLOFENAC SODI75 M2 PO; +KLONOPIN0.5 M1 PO; +NICOTINE PATCH1 EAC3 TOP; +OXYCODONE HCL30 M1 PO; +TRAZODONE HCL100 M1 PO; +ZOLOFT100 M1 PO
--- NOTE | 2018-03-12 11:57 | ED PSYCHIATRIC COMPLAINT ---
See Addendum History of Present Illness General Chief Complaint: Psychiatric Related Complaint Stated Complaint: SI ANXIETY Source: patient Exam Limitations: no limitations Vital Signs & Intake/Output Vital Signs & Intake/Output Vital Signs Date Time Temp Pulse Resp B/P B/P Pulse O2 O2 Flow FiO2 Mean Ox Delivery Rate 03/12 1822 98.2 60 16 113/69 96 Room Air 03/12 1451 98.2 65 16 117/71 97 Room Air 03/12 1143 98.1 96 18 147/85 95 Room Air Allergies Coded Allergies: No Known Allergies (09/30/17) Reconcile Medications Divalproex Sodium (Depakote) 500 MG TABLET.DR 1 TAB PO BID mood and anger Divalproex Sodium (Depakote) 125 MG TABLET.DR 2 TAB PO BEDTIME with 500mg = 750 mg at bedtime Gabapentin 600 MG TABLET 1 TAB PO QPM MENTAL HEALTH (Reported) Sertraline HCl (Zoloft) 100 MG TABLET 100 MG PO 0800 anxiety and depression Triage Note: 37 YEAR OLD MALE TO ER WITH COMPLAINTS OF POSITIVE SI THOUGHTS FOR THE PAST WEEK WITH NO SPECIFIC PLAN AT THIS TIME. DENIES DRUG USE BUT STATES THAT HE SOMETIMES TAKES XANAX. Triage Nurses Notes Reviewed? yes Onset: Abrupt Duration: unknown duration Timing: unknown HPI: 03/12/18 37-year-old male with a past medical history of depression, bipolar disorder and substance abuse. He presents to the ED with agitation and thoughts of suicidal or homicidal ideation. He denies any ingestion. He is also requesting reevaluation of his right wrist. He says he dislocated it months ago, he is unclear about the events. He says he intermittently gets pain to the right wrist since he injured it months ago. There is no swelling to the wrist he has full range of motion. No neurovascular tendon injuries are identified. Past History Travel History Traveled to [place] past 21 day No Medical History Any Pertinent Medical History? 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 No Review of Systems Review of Systems Constitutional: Denies: fever. EENTM: Denies: double vision. Respiratory: Denies: short of breath. Cardiovascular: Denies: chest pain. GI: Denies: abdominal pain. Genitourinary: Reports: no symptoms. Musculoskeletal: Reports: see HPI. Skin: Denies: rash. Neurological/Psychological: Reports: depressed. Hematologic/Endocrine: Reports: no symptoms. Immunologic/Allergic: Reports: no symptoms. Physical Exam Physical Exam General Appearance: alert, awake, anxious, moderate distress Head: atraumatic, normal appearance Eyes: Bilateral: normal appearance, PERRL, EOMI. Ears, Nose, Throat: normal pharynx, normal ENT inspection Neck: normal inspection, supple, full range of motion Respiratory: normal breath sounds, chest non-tender, no respiratory distress Cardiovascular: regular rate/rhythm Gastrointestinal: soft, non-tender Extremities: tenderness, mild right dorsal wrist,right radial ulnar median nerve function is intact. Neurological/Psychiatric: no motor/sensory deficits, awake, agitated, alert, anxious Appearance/Memory/Insight: disheveled Behavoir/Eye Contact/Speech: cooperative Thoughts/Hallucinations: no apparent hallucination Skin: intact, normal color, warm/dry SAD PERSONS SAD PERSONS Response Value Male Sex? yes 1 Depression/Hopelessness? yes 2 Previous Attempts/Psych Care yes 1 Excessive Ethanol/Drug Use? yes 1 Rational Thinking Loss? yes 2 Single//? yes 1 Social Support? has support 0 Total 8 SAD PERSONS Done? yes Progress Differential Diagnosis: drug intoxication, drug overdose, drug withdrawal, depression, suicidal ideation , homicidal ideation Plan of Care: Orders Procedure Date/time Status Continuous Observation Monitor 03/13 0700 Active Continuous Observation Monitor 03/13 0300 Active Regular Diet 03/12 D Active Continuous Observation Monitor 03/12 2300 Active Continuous Observation Monitor 03/12 1900 Active Add-on Test (ER Only) 03/12 1332 Active EKG 03/12 1332 Active TROPONIN LEVEL 03/12 1211 Complete Continuous Observation Monitor 03/12 1145 Active URINE DRUG SCREEN FOR ER ONLY 03/12 1145 Complete URINALYSIS 03/12 1145 Complete ETHANOL 03/12 1145 Complete COMPREHENSIVE METABOLIC PANEL 03/12 1145 Complete CBC WITHOUT DIFFERENTIAL 03/12 1145 Complete ED CRISIS PSYCH CONSULT 03/12 1145 Active Splints 03/12 UNK Active Laboratory Tests 03/12/18 1430: Urine Opiates Screen > 4000.00 H, Methadone Screen < 40, Barbiturate Screen < 60, Ur Phencyclidine Scrn < 6.00, Amphetamines Screen 206, U Benzodiazepines Scrn 101, Urine Cocaine Screen 612 H, Urine Cannabis Screen < 5.00, Urine Color YEL, Urine Clarity CLEAR, Urine pH 6.0, Ur Specific [place] >= 1.030, Urine Protein NEG, Urine Ketones NEG, Urine Nitrite NEG, Urine Bilirubin NEG, Urine Urobilinogen 0.2, Ur Leukocyte Esterase NEG, Ur Microscopic SEDIMENT EXAMINED, Urine RBC 50-75 H, Urine WBC 1-3 H, Ur Epithelial Cells RARE, Urine Bacteria RARE H, Urine Mucus MOD H, Micro UA Comment B[place] YEAST H, Urine Hemoglobin LARGE H, Urine Glucose NEG 03/12/18 1211: Anion Gap 9, Estimated GFR > 60, BUN/Creatinine Ratio 22.9, Glucose 107 H, Calcium 9.1, Total Bilirubin 0.3, AST 16 L, ALT 36, Alkaline Phosphatase 67, Troponin I < 0.01, Total Protein 6.8, Albumin 4.1, Globulin 2.7, Albumin/ Globulin Ratio 1.5, CBC w Diff NO MAN DIFF REQ, RBC 4.53 L, MCV 88.5, MCH 30.4, MCHC 34.4, RDW 13.5, MPV 7.9, Gran % 61.4, Lymphocytes % 26.3, Monocytes % 7.4, Eosinophils % 4.4, Basophils % 0.5, Absolute Granulocytes 3.6, Absolute Lymphocytes 1.5, Absolute Monocytes 0.4, Absolute Eosinophils 0.3, Absolute Basophils 0, Serum Alcohol < 10.0 Departure Departure Disposition: STILL A PATIENT Condition: Stable Clinical Impression Primary Impression: Suicide ideation Secondary Impressions: Bipolar disorder, Wrist injury Referrals: Patient Has No Primary Care Dr (PCP/Family) Departure Forms: Customer Survey General Discharge Information Comments EXAMINATION: XR WRIST, RIGHT CLINICAL INFORMATION: Status post fall. COMPARISON: No priors TECHNIQUE: PA, lateral, and oblique views of the right wrist. FINDINGS: There is widening of the distal radial ulnar alignment, with dorsal displacement of the distal ulna with respect to the distal radius. No associated cortical defect is noted. The remainder of the alignment is within normal limits. No cortical defects are noted throughout the bony structures. IMPRESSION: Prominent posterior positioning of the distal ulna with respect to the distal radius is concerning for disruption of the distal radial ulnar articulation. DICTATED BY: Yadira Ball MD DATE/TIME DICTATED:03/12/181420 STUDENT FINANCIAL AID MANAGER:MARYBETH DATE/TIME TRANSCRIBED:03/12/181420 CONFIDENTIAL, DO NOT COPY WITHOUT APPROPRIATE AUTHORIZATION. <Electronically signed in Other Vendor System> SIGNED BY: Yadira Ball MD [id number]
[2018-03-12 12:27] LABS: ABSOLUTE BASOPHIL COUNT 0 /CUMM (0.0-0.2); ABSOLUTE EOSINOPHIL COUNT 0.3 /CUMM (0.0-0.7); ABSOLUTE GRANULOCYTE CT 3.6 /CUMM (1.4-6.5); ABSOLUTE LYMPH COUNT 1.5 /CUMM (1.2-3.4); ABSOLUTE MONOCYTE COUNT 0.4 /CUMM (0.10-0.60); BASOPHIL % 0.5 % (0.0-2.0); EOSINOPHIL % 4.4 % (0-5); GRANULOCYTE % 61.4 % (42.2-75.2); HEMATOCRIT 40.1 % (42-52); MEAN CORPUSCULAR HGB 30.4 PG (27.0-31.0); MEAN CORPUSCULAR HGB CONC 34.4 G/DL (33.0-37.0); MEAN CORPUSCULAR VOLUME 88.5 FL (80.0-94.0); MEAN PLATELET VOLUME 7.9 FL (7.4-10.4); PLATELET COUNT 235 /CUMM (130-400); RBC DISTRIBUTION WIDTH 13.5 % (11.5-14.5); RED BLOOD CELL CT 4.53 /CUMM (4.70-6.10); WHITE BLOOD CELL COUNT 5.9 /CUMM (4.8-10.8)
--- NOTE | 2018-03-12 14:26 | RADIOLOGY REPORT ---
EXAMINATION: XR WRIST, RIGHT CLINICAL INFORMATION: Status post fall. COMPARISON: No priors TECHNIQUE: PA, lateral, and oblique views of the right wrist. FINDINGS: There is widening of the distal radial ulnar alignment, with dorsal displacement of the distal ulna with respect to the distal radius. No associated cortical defect is noted. The remainder of the alignment is within normal limits. No cortical defects are noted throughout the bony structures. IMPRESSION: Prominent posterior positioning of the distal ulna with respect to the distal radius is concerning for disruption of the distal radial ulnar articulation.
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
[2018-03-13 21:42] VITALS: BP 108/55
[2018-03-13 21:43] VITALS: BP 108/55
[2018-03-14] VITALS (7 sets, daily range): BP systolic 99–140; BP diastolic 52–81
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
--- NOTE | 2018-03-14 17:49 | SOCIAL WORKER PROG NOTE PSYCH ---
Social Work Progress Note Progress Note This business writer and medical student met with patient. He stated that after the last discharge from [facility] he attended the IOP intake, but did not continue with IOP due to his work schedule. He stated that he currently works Sun- 6pm-6am and would like a referral to [facility]. Patient stated that he stopped taking his medications when he did not continue with IOP following the last discharge. He stated that he is currently living with his cousin, Ursula. He speaks with his children daily, but has minimal contact with them and does not speak with his . He reported frequent verbal arguments with his and did not provide further details as to why they are no longer speaking and he is no longer living with his and children. Patient reports daily alcohol use on the days he does not work (, Saturday and Saturday), describing amount as "alot." He also reported Xanax and Cocaine use. "I don't use Xanax when I'm drinking." Patient reported SI. He denied HI. He stated that he feels safe on this unit and agreed to inform staff immediately if feeling unsafe. Patient reported AH/ VH, however, did not expand further on this. Patient presented as depressed, tearful, anxious and guarded. Patient is agreeable to a family meeting, however , unsure of who he would like to invite. He stated that he would contact his cousins this weekend and inform this business writer on Saturday who he would like to attend the meeting.
[2018-03-15 07:40] VITALS: BP 104/66
[2018-03-15 07:42] VITALS: BP 104/66
[2018-03-15 12:10] VITALS: BP 126/68
--- NOTE | 2018-03-15 17:59 | CP SOUTH PROGRESS NOTE PSYCH ---
See Addendum Psych (Inpt) Progress Note Progress Note Include the following elements, when applicable: Involvement in the active treatment of the patient with behavioral observations of the patient and the patient's response to the treatment. Review of the ongoing treatment process in the context of the treatment plan. Indication of how multi-disciplinary staff members are carrying out the treatment plan. Plans for future interventions and recommendations for revision of the treatment plan. Liaison with other physicians/providers. Progress Note: Case discussed with charge nurse. Pt has bee intemittently agitated. Cooperates with care but is med-seeking. Upon assesmnet reports feeling highly anxious and intermittently " angry" " Nothing works" I need my klonopin" I don;t understand why you don;t give it to me" Reports poor sleep in context of increased ruminations about multiple psychosocial stressors. Feels ' shaky" Acknowledges depakote has helped in the past. MSE MIddle age man. anxious with mild PMA. Fair eye contact. Irritable. NO SI/ HI. No AVH organized and linear. Cog AAox3 I/J LImited.
[2018-03-15 20:06] VITALS: BP 117/74
[2018-03-15 20:08] VITALS: BP 117/74
[2018-03-15 21:16] VITALS: BP 144/70
[2018-03-16 07:46] VITALS: BP 121/72
[2018-03-16 07:47] VITALS: BP 121/72
[2018-03-16 12:14] VITALS: BP 112/68
--- NOTE | 2018-03-16 12:56 | CP SOUTH PROGRESS NOTE PSYCH ---
Psych (Inpt) Progress Note Progress Note Include the following elements, when applicable: Involvement in the active treatment of the patient with behavioral observations of the patient and the patient's response to the treatment. Review of the ongoing treatment process in the context of the treatment plan. Indication of how multi-disciplinary staff members are carrying out the treatment plan. Plans for future interventions and recommendations for revision of the treatment plan. Liaison with other physicians/providers. Progress Note: Herminio this AM feeling better overall. Less pervasive anxiety. Decreased irritability and racing thougths. Slept longer hours last nig. Eating full meals. Claims he has lost about 30 pds since November when he stopped meds. Seems more thougthful about his current diagnosis and proposed tx plan. Able to describe thorugh the years periods of atypical depression and mixed episodes. Acknowledges Depakote is helpful with mood stabilization. Denies any SE related to medications MSE Middle age man. Cooperative. Fair eye contact. Fidgety. Restricted affect but less irritable than yesterday. No SI/HI. No AVH organized and linear. Cog AAox3 I/J Fair. A/P 38 y/o Male. BPAD type II. MRE mixed. ETOH, Benzo, COcaine, THC Use Dx. Improving. Tolerating medication regimen. WIll continue same tx plan. Would benefit [facility] level care,
[2018-03-16 16:50] VITALS: BP 112/50
[2018-03-16 19:54] VITALS: BP 121/76
[2018-03-16 19:57] VITALS: BP 121/76
[2018-03-17 08:05] VITALS: BP 102/68
[2018-03-17 08:07] VITALS: BP 102/68
--- NOTE | 2018-03-17 08:09 | CP SOUTH PROGRESS NOTE PSYCH ---
Psych (Inpt) Progress Note Progress Note Vital Signs Date Time Temp Pulse Resp B/P B/P Pulse O2 FiO2 03/17 1159 73 137/98 03/17 0911 91 102/68 03/17 0807 96.8 91 10268 03/17 0805 96.8 91 10268 03/16 2102 72 121/76 03/16 1957 98.4 72 121/76 03/16 1954 98.4 72 121/76 03/16 1650 104 112/50 03/16 1235 97.9 79 20 11268 03/16 1214 79 Herminio was alert and oriented to time, place, and person. He was calm and cooperative. He reported feeling ready for discharge, less anxious, less depressed He reported feeling less irritability and racing thougths. Slept well, eating full meals. Denies any SE related to medications Cooperative. Fair eye contact. Fidgety. Restricted affect but less irritable No SI/HI. The patient denied experiencing any hallucinations. He was organized and linear. A/P improving. Tolerating medication regimen. Plan: D/C Home today to follow up with IOP
[2018-03-17] MEDS ORDERED: ZOLOFT100 M1 PO (11:36)
[2018-03-17] MEDS ORDERED: DEPAKOTE500 M1 PO (11:36)
[2018-03-17] MEDS ORDERED: TRAZODONE HCL50 M1 PO (11:36)
[2018-03-17] MEDS ORDERED: DEPAKOTE125 M1 PO (11:36)
[2018-03-17] MEDS ORDERED: CHLORPROMAZINE25 M2 PO (11:36)
[2018-03-17] MEDS ORDERED: GABAPENTIN300 M2 PO (11:36)
--- NOTE | 2018-03-17 11:47 | Patient Discharge Instructions ---
Psych Discharge Inst General Discharge Information Reason for Admission: intermittent thoughts of suicide Psy Discharge Primary Diag+ Unspecified Depressive DO Psy Discharge Secondary Diag+ Cannabis Use Disorder Summary Tests/Major Procedures Lab Urine Cocaine Screen 612 NG/ML H 03/12/18 1430 Urine Opiates Screen > 4000.00 NG/ML H 03/12/18 1430 Studies Pending at DC: none Patient Instructions Contact Information Your Psychiatrist on [facility] was Chas Zafar MD * If you are experiencing an emergency related to this hospitalization, please call [phone] to contact the treating psychiatrist or the psychiatrist-on- call. * To Request a copy of your medical records, please contact the Medical Records Department at [phone]. * To request results of studies pending at the time of discharge, please call [phone]. * Continue your Medications until directed to stop by your Healthcare provider. General Medication Information Please continue to take your new medications and your continued home medications , unless otherwise indicated on your discharge medication list, or unless directed by your MD or LENS MOLDING EQUIPMENT OPERATOR to stop them. Special Instructions Diet Regular Activity Normal - Tobacco Use Treatment Offered Post DC Medications Offered: Refused Tob Medication Tx Post DC Tobacco Treatment Plan: Refused Tobacco Tx Pgm - EtOH/Drug Use D/O Treatment Offered Post DC Medications Offered: Med Not Indicated for D/O Post DC EtOH/SubAbuse [place] Plan: [facility] SubAbuse/Dual IOP Advance Directives Does the Patient have Medical Advance Directives No/Refused further info Does Pt have Psychiatric Advance Directives? No/Refused further info Does Patient have a Designated Surrogate Decision Maker: No Information About Psychiatric Advance Directives Provided? Refused Discharge Plan Post Hospital Treatment Plan: Dual Diagnosis IOP
[2018-03-17 11:59] VITALS: BP 137/98
--- NOTE | 2018-03-17 12:11 | DISCHARGE SUMMARY REPORT-PSYCH ---
Visit Information Visit Dates/Diagnosis' Admission Date: 03/13/18 Discharge Date: 03/17/18 Reason for Admission: intermittent thoughts of suicide Psy Discharge Primary Diag: Unspecified Depressive DO Psy Discharge Secondary Diag: Cannabis Use Disorder Hospital Course Significant Lab Findings: Lab Urine Cocaine Screen 612 NG/ML H 03/12/18 1430 Urine Opiates Screen > 4000.00 NG/ML H 03/12/18 1430 Course Allergies: Coded Allergies: No Known Allergies (09/30/17) Hospital Course/TX Response: 03/17/2018: Herminio was alert and oriented to time, place, and person. He was calm and cooperative. He reported feeling ready for discharge, less anxious, less depressed. He reported feeling less irritability and racing thougths. Slept well , eating full meals. Denies any SE related to medications Cooperative. Fair eye contact. Fidgety. Restricted affect but less irritable. No SI/HI. The patient denied experiencing any hallucinations. He was organized and linear. A/P improving. Tolerating medication regimen. Plan: D/C Home today to follow up with IOP Discharge HBIPS - Tobacco Use Treatment Offered Post DC Medications Offered: Refused Tob Medication Tx Post DC Tobacco Treatment Plan: Refused Tobacco Tx Pgm - EtOH/Drug Use D/O Treatment Offered Metabolic Screening - Screen if on a Neuroleptic Medication - Metabolic screening should include: - Blood Pressure, BMI, Glucose or Hgb A1c, & a - Lipid profile from within the past 365 days. Metabolic Screening Patient on a PRN neuroleptic BMI: 20.100 Blood Pressure: 137/98 Laboratory Results From [facility] (If applicable): Lab Cholesterol 141 MG/DL 03/12/18 1211 Cholesterol/HDL Ratio 3 % 03/12/18 1211 HDL Cholesterol 53 mg/dL 03/12/18 1211 Hemoglobin A1c 6.0 % H 03/12/18 1211 LDL Cholesterol, Calc 72 mg/dL 03/12/18 1211 Triglycerides 81 mg/dL 03/12/18 1211 Discharge Instructions General Discharge Information Discharge Diet Regular Discharge Activity Normal Referrals Ordered Referrals Intensive Outpt Psy-Substance 03/18/[address] [place] [address] [facility] [address], [place] [phone] IOP Intake: 03/18/18, at 1:15pm [facility] 03/26/[address] [place] [address], [place] [address] [facility] [address] [place], [place] [phone] Group meets every other Saturday at 4pm Next group: 03/26/18 at 4pm Prescriptions Stop taking the following medications: Gabapentin (Gabapentin) 600 MG TABLET ORAL Every night Qty = 120 Continue taking these medications: Divalproex Sodium (Depakote) 500 MG TABLET.DR 1 Tablet ORAL TWICE DAILY Qty = 30 Comments: Last Taken:03/17/18 Time:9am This prescription has been renewed Divalproex Sodium (Depakote) 125 MG TABLET.DR 2 Tablet ORAL BEDTIME Qty = 30 Comments: Last Taken:03/16/18 Time:9pm This prescription has been renewed Sertraline HCl (Zoloft) 100 MG TABLET 100 Milligram ORAL DAILY @8 AM Qty = 15 Comments: Last Taken:03/17/18 Time:10am This prescription has been renewed Start taking the following new medications: Gabapentin (Gabapentin) 300 MG CAPSULE 600 Milligram ORAL EVERY 4 HOURS NEEDED as needed for ANXIETY/AGITATION/ INSOMNIA Qty = 120 No Refills Comments: Last Taken:03/15/18 Time:6pm Trazodone HCl (Trazodone HCl) 50 MG TABLET 50 Milligram ORAL AT BEDTIME as needed for INSOMNIA Qty = 30 No Refills Comments: Last Taken:03/16/18 Time:10pm Chlorpromazine HCl (Chlorpromazine HCl) 25 MG TABLET 50 Milligram ORAL EVERY 4 HOURS NEEDED as needed for ANXIETY/AGITATION/ INSOMNIA Qty = 120 No Refills Comments: Last Taken:03/16/18 Time:8pm Studies Pending at Discharge none
--- NOTE | 2018-03-17 18:17 | SOCIAL WORKER PROG NOTE PSYCH ---
Social Work Progress Note Progress Note [facility] auth entered (review due on 03/17/18 for the weekend): Determination Status: PENDED The services requested require additional review. You will be contacted regarding the status of this request if further information is needed. An authorization decision will be made within the required timeframes and details of that decision may be found under the member's authorization history. Member Name Member ID Member Subscriber Name Subscriber ID JOES BIRMINGHAM [id number] JOSE BIRMINGHAM JR [id number] Pended Authorization # Client Authorization # Type of Request [id number] CONCURRENT Date of Admission/ Start of Services Requested From Submission Date 03/13/2018 03/16/2018 03/17/2018 Level of Service Type of Service Level of Care Type of Care INPATIENT/[facility] Reason Code P76
--- NOTE | 2018-03-17 18:46 | SOCIAL WORKER PROG NOTE PSYCH ---
Social Work Progress Note Progress Note This video games storywriter met with patient. He described his mood as "I'm fine. I'm ready to go!" Patient denied SI/HI/AH/VH. He explained that when he had responded 'yes' to HI in the past he stated that he was not having any violent thoughts or violent thoughts with plan towards any particular person. Rather, he was "just feeling really agitated." Patient reported improvement with symptoms and stated that he is no longer feeling agitated. Patient identified a safety plan in which he would "call Linda," his cousin. He was also willing to utilize the crisis numbers and warm lines which he accepted upon discharge. Patient requested a referral to [facility] rather than [facility]. He stated that he would utilize transportation through [facility] and was provided with their phone number. He accepted an IOP intake with for 03/18/18 at 1:15pm. 12:45pm Dr. Zafar and this video games storywriter met with the patient and his cousin, Linda (a behavioral therapist), for a family meeting. She denied having any concerns about the patient discharging today and confirmed that he can stay with her as long as needed. She denied having any safety concerns and confirmed (as patient had also stated) that there are no guns or weapons in the home. Linda was also informed of the discharge plan ([facility]) and stated that she could provide transportation to the intake tomorrow (03/18/18 at 1:15pm). Faxed Referral(s) Referred To: [facility] Transition of Care Documents sent: Health Summary Faxed to: [facility] Fax #: [phone] Faxed by: Mary Alice Siddiqui LCSW Date faxed: 03/17/18 Time Faxed: [phone]
== END 2018-03-17 13:22 | DRG 754 ==
LOC: ERH 11:40 → CP SOUTH 03-13 15:45 → ERHI 03-13 15:45 → CP SOUTH 03-13 21:21 → ENRESERV 03-13 23:59 → CP SOUTH 03-14 12:05
PROVIDERS: Physician Assistant Medical
DX: F32.9 Major depressive disorder, single episode, unspecified (principal); F12.90 Cannabis use, unspecified, uncomplicated; F41.9 Anxiety disorder, unspecified; R45.851 Suicidal ideations; M25.512 Pain in left shoulder
CPT/HCPCS: 73110-RT; 80307; 81001; 93005; 93010; G0463; G0480